=== PATIENT | male | born 1990 | race Caucasian/White ===

== ENCOUNTER 2019-09-09 10:30 | Emergency (ER) | payer BC, OTHER ==
[2019-09-09] MEDS ORDERED: KETOROLAC 30 MG/ML INJ ONE (11:41)
[2019-09-09] MEDS ORDERED: HYDROCODONE/APAP 7.5/325 MG TAB ONE (11:41)
--- NOTE | 2019-09-09 11:52 | RAD REPORT ---
EXAM DESCRIPTION: CT - Spine Lumbar Wo Con - 09/09/2019 11:37 am CLINICAL HISTORY: Radiculopathy. PAIN COMPARISON: No comparisons TECHNIQUE: Axial noncontrast CT imaging of the lumbar spine was performed with coronal and sagittal re-formatted images. All CT scans are performed using dose optimization technique as appropriate and may include automated exposure control or mA/KV adjustment according to patient size. FINDINGS: No acute lumbar spine fracture seen. No aggressive marrow pattern or malalignment. Paraspinal tissues are normal in thickness. No paraspinal abscess or hematoma seen. Intervertebral disc disease assessment is inherently limited by CT. Within these limitations, no high -grade canal stenosis suspected. IMPRESSION: Negative examination. Consider MRI follow-up for assessment of disc disease if clinically desired.
--- NOTE | 2019-09-09 12:11 | EDPHYS ---
Physician Documentation [facility] Name: Ned Clark Age: 29 yrs Sex: Male : 1990 Arrival Date: 09/09/2019 Time: 10:34 Bed 10 Private MD: ED Physician Matthias Bear HPI: 09/09 12:14 This 29 yrs old Male presents to ER via Wheelchair with complaints of Back kb Pain. 12:14 The patient presents with pain that is acute, with no known mechanism of injury. The kb symptoms are located in the low back. Onset: The symptoms/episode began/occurred 4 day(s) ago. The pain does not radiate. Associated signs and symptoms: The patient has no apparent associated signs or symptoms. The problem was sustained from unknown cause. Modifying factors: The patient symptoms are alleviated by nothing, the patient symptoms are aggravated by standing. Severity of symptoms: At their worst the symptoms were moderate, in the emergency department the symptoms are unchanged. The patient has not experienced similar symptoms in the past. The patient has not recently seen a physician. Historical: - Allergies: 11:05 No Known Allergies; aj1 - Home Meds: 11:05 None [Active]; aj1 - PMHx: 11:05 None; aj1 - PSHx: 11:05 leg surgery; knee surgery; aj1 - Immunization history:: Flu vaccine is not up to date. - Social history:: Smoking status: Patient uses tobacco products, chewing tobacco. - Ebola Screening: : Patient denies travel to an Ebola-affected area in the 21 days before illness onset. ROS: 12:13 Constitutional: Negative for fever, chills, and weight loss, ENT: Negative for injury, kb pain, and discharge, Neck: Negative for injury, pain, and swelling, Cardiovascular: Negative for chest pain, palpitations, and edema, Respiratory: Negative for shortness of breath, cough, wheezing, and pleuritic chest pain, Abdomen/GI: Negative for abdominal pain, nausea, vomiting, diarrhea, and constipation, : Negative for injury, bleeding, discharge, and swelling, MS/Extremity: Negative for injury and deformity, Skin: Negative for injury, rash, and discoloration, Neuro: Negative for headache, weakness, numbness, tingling, and seizure. 12:13 Back: Positive for pain at rest, pain with movement, of the low back area. Exam: 12:14 Constitutional: This is a well developed, well nourished patient who is awake, alert, kb and in no acute distress. Head/Face: Normocephalic, atraumatic. ENT: Nares patent. No nasal discharge, no septal abnormalities noted. Tympanic membranes are normal and external auditory canals are clear. Oropharynx with no redness, swelling, or masses, exudates, or evidence of obstruction, uvula midline. Mucous membranes moist. Neck: Trachea midline, no thyromegaly or masses palpated, and no cervical lymphadenopathy. Supple, full range of motion without nuchal rigidity, or vertebral point tenderness. No Meningismus. Chest/axilla: Normal chest wall appearance and motion. Nontender with no deformity. No lesions are appreciated. Cardiovascular: Regular rate and rhythm with a normal S1 and S2. No gallops, murmurs, or rubs. Normal PMI, no JVD. No pulse deficits. Respiratory: Lungs have equal breath sounds bilaterally, clear to auscultation and percussion. No rales, rhonchi or wheezes noted. No increased work of breathing, no retractions or nasal flaring. Abdomen/GI: Soft, non-tender, with normal bowel sounds. No distension or tympany. No guarding or rebound. No evidence of tenderness throughout. Back: No spinal tenderness. No costovertebral tenderness. Full range of motion. Skin: Warm, dry with normal turgor. Normal color with no rashes, no lesions, and no evidence of cellulitis. MS/ Extremity: Pulses equal, no cyanosis. Neurovascular intact. Full, normal range of motion. Neuro: Awake and alert, GCS 15, oriented to person, place, time, and situation. Cranial nerves II-XII grossly intact. Motor strength 5/5 in all extremities. Sensory grossly intact. Cerebellar exam normal. Normal gait. Vital Signs: 11:05 BP 134 / 93; Pulse 77; Resp 18; Temp 98.1; Pulse Ox 99% on R/A; Weight 99.79 kg (R); aj1 Height 5 ft. 8 in. (172.72 cm) (R); Pain 9/10; 11:05 Body Mass Index 33.45 (99.79 kg, 172.72 cm) aj1 MDM: 11:09 Patient medically screened. kb 12:09 Data reviewed: vital signs, nurses notes. Data interpreted: Pulse oximetry: on room air kb is 99 %. Interpretation: normal. Counseling: I had a detailed discussion with the patient and/or guardian regarding: the historical points, exam findings, and any diagnostic results supporting the discharge/admit diagnosis, radiology results, the need for outpatient follow up, a family practitioner, to return to the emergency department if symptoms worsen or persist or if there are any questions or concerns that arise at home. 09/09 11:26 Order name: CT Lumbar Spine Wo Con; Complete Time: 11:59 kb Administered Medications: 11:45 Drug: [place] (7.5 mg-325 mg) 1 tabs Route: PO; iw 12:00 Follow up: Response: No adverse reaction iw 11:45 Drug: TORadol 30 mg Route: IM; Site: right deltoid; iw 12:00 Follow up: Response: No adverse reaction iw Disposition: 13:07 Co-signature as Attending Physician, Matthias Bear MD I agree with the assessment and kdr plan of care. Disposition: 09/09/19 12:10 Discharged to Home. Impression: Low back pain. - Condition is Stable. - Discharge Instructions: Back Injury Prevention, [id number], Back Pain, Adult, [id number]. - Prescriptions for Cyclobenzaprine 10 mg Oral Tablet - take 1 tablet by ORAL route every 8 hours As needed; 21 tablet. Diclofenac Sodium 75 mg Oral Tablet, Delayed Release (E.C.) - take 1 tablet by ORAL route 2 times per day As needed; 30 tablet. - Medication Reconciliation Form, Thank You Letter, Antibiotic Education, Prescription Opioid Use, Work release form form. - Follow up: Emergency Department; When: As needed; Reason: Worsening of condition. Follow up: Private Physician; When: 2 - 3 days; Reason: Recheck today's complaints, Continuance of care, Re-evaluation by your physician. Signatures: Dispatcher [employer] EDCinthia Espinosa FNP-C FNP-Radha Potts, RN RN aj1 Matthias Bear MD MD kdr Bridget Serna RN RN iw Corrections: (The following items were deleted from the chart) 12:57 12:10 09/09/2019 12:10 Discharged to Home. Impression: Low back pain. Condition is iw Stable. Forms are Medication Reconciliation Form, Thank You Letter, Antibiotic Education, Prescription Opioid Use. Follow up: Emergency Department; When: As needed; Reason: Worsening of condition. Follow up: Private Physician; When: 2 - 3 days; Reason: Recheck today's complaints, Continuance of care, Re-evaluation by your physician. kb
--- NOTE | 2019-09-09 12:11 | ER ---
Nurse's Notes [facility] Name: Ned Clark Age: 29 yrs Sex: Male : 1990 Arrival Date: 09/09/2019 Time: 10:34 Bed 10 Private MD: Diagnosis: Low back pain Presentation: 09/09 11:02 Presenting complaint: Patient states: "My back is hurting so bad that I can't even aj1 walk. I went hunting this weekend and didn't really do anything physical. the only thing I could see was i was sitting in some uncomfortable positions, I went to work Saturday and Saturday and it was getting worse and worse and then this morning I couldn't get out of bed." Reports lower back pain, denies any recent injury. Transition of care: patient was not received from another setting of care. Onset of symptoms was 2018. Risk Assessment: Do you want to hurt yourself or someone else? Patient reports no desire to harm self or others. Initial Sepsis Screen: Does the patient meet any 2 criteria? No. Patient's initial sepsis screen is negative. Does the patient have a suspected source of infection? No. Patient's initial sepsis screen is negative. Care prior to arrival: None. 11:02 Method Of Arrival: Wheelchair aj1 11:02 Acuity: SILVINO 4 aj1 Triage Assessment: 11:05 General: Appears in no apparent distress. uncomfortable, Behavior is calm, cooperative, aj1 appropriate for age. Pain: Complains of pain in low back area Pain currently is 9 out of 10 on a pain scale. Neuro: Level of Consciousness is awake, alert, obeys commands. Cardiovascular: Patient's skin is warm and dry. Respiratory: Airway is patent Respiratory effort is even, unlabored, Respiratory pattern is regular, symmetrical. GI: No signs and/or symptoms were reported involving the gastrointestinal system. : No signs and/or symptoms were reported regarding the genitourinary system. Derm: No signs and/or symptoms reported regarding the dermatologic system. Skin is pink, warm \\T\\ dry. normal. Musculoskeletal: Circulation, motion, and sensation intact. Range of motion: intact in all extremities. Historical: - Allergies: 11:05 No Known Allergies; aj1 - Home Meds: 11:05 None [Active]; aj1 - PMHx: 11:05 None; aj1 - PSHx: 11:05 leg surgery; knee surgery; aj1 - Immunization history:: Flu vaccine is not up to date. - Social history:: Smoking status: Patient uses tobacco products, chewing tobacco. - Ebola Screening: : Patient denies travel to an Ebola-affected area in the 21 days before illness onset. Screenin:07 Abuse screen: Denies threats or abuse. Denies injuries from another. Nutritional aj1 screening: No deficits noted. Tuberculosis screening: No symptoms or risk factors identified. 12:55 Fall Risk None identified. iw Assessment: 11:07 Reassessment: see triage assessment. aj1 Vital Signs: 11:05 BP 134 / 93; Pulse 77; Resp 18; Temp 98.1; Pulse Ox 99% on R/A; Weight 99.79 kg (R); aj1 Height 5 ft. 8 in. (172.72 cm) (R); Pain 9/10; 11:05 Body Mass Index 33.45 (99.79 kg, 172.72 cm) aj1 ED Course: 10:34 Patient arrived in ED. mr 10:55 NaelCinthia, GAGAN is PHCP. kb 10:55 Matthias Bear MD is Attending Physician. kb 11:05 Triage completed. aj1 11:05 Arm band placed on Patient placed in an exam room. aj1 11:07 Radha Willingham, RN is Primary Nurse. aj1 11:07 Patient has correct armband on for positive identification. Call light in reach. aj1 11:07 No provider procedures requiring assistance completed. aj1 11:38 CT Lumbar Spine Wo Con In Process Unspecified. EDMS 12:55 Patient did not have IV access during this emergency room visit. iw Administered Medications: 11:45 Drug: [place] (7.5 mg-325 mg) 1 tabs Route: PO; iw 12:00 Follow up: Response: No adverse reaction iw 11:45 Drug: TORadol 30 mg Route: IM; Site: right deltoid; iw 12:00 Follow up: Response: No adverse reaction iw Outcome: 12:10 Discharge ordered by . kb 12:56 Discharged to home via wheelchair, with family. iw 12:56 Condition: good 12:56 Discharge instructions given to family, Instructed on discharge instructions, follow up and referral plans. medication usage, Demonstrated understanding of instructions, follow-up care, medications, Prescriptions given X 2. 12:57 Patient left the ED. iw Signatures: Dispatcher [employer] Cinthia Vazquez, GAGAN JONES-Radha Potts RN RN aj1 Stefanie Wu Irene, RN RN iw
[2019-09-09 13:03] VITALS: BP 134/93; TEMP 98.1; O2SAT 99
== END 2019-09-09 12:57 | disposition home or self-care (01) ==
LOC: ER 10:30
DX: M54.5 Low back pain (principal); Z72.0 Tobacco use
CPT/HCPCS: 72131; 96372; 99283